=== PATIENT | male | born 1990 | race Caucasian/White ===

== ENCOUNTER 2025-01-04 08:24 | Outpatient (CLI) | payer BC, SELFPAY | END 2025-01-04 08:25 | disposition home or self-care (01) | PROVIDERS: Visit Provider Physician Assistant Medical | DX: Z13.228 Encounter for screening for other metabolic disorders (principal); Z13.6 Encounter for screening for cardiovascular disorders; Z11.4 Encounter for screening for human immunodeficiency virus [HIV]; Z11.59 Encounter for screening for other viral diseases | CPT/HCPCS: 80053; 80061; 86703; 86803 ==

== ENCOUNTER 2025-05-03 10:38 | Outpatient (CLI) | payer BC, SELFPAY | END 2025-05-03 10:39 | disposition home or self-care (01) | PROVIDERS: Visit Provider Family Medicine | DX: M25.50 Pain in unspecified joint (principal); Z11.8 Encounter for screening for other infectious and parasitic diseases | CPT/HCPCS: 84443; 86038; 86140; 86431; 86618 ==